=== PATIENT | female | born 1955 | race Caucasian/White ===

== ENCOUNTER 2023-11-05 22:48 | Emergency (ER) | payer OTHER, SELFPAY ==
[2023-11-05 22:50] VITALS: BP 137/96
--- NOTE | 2023-11-06 01:23 | ED.SKININJ ---
HPI-Injury
General
Chief Complaint: Bite
Source: patient
Exam Limitations: none
Time Seen by Provider: 11/06/23 00:21
Nursing documentation reviewed up to this point in time: agreed with
Travel History
Have you had any contact with someone who has COVID-19?: No
Do you have any symptoms of coronavirus? Fever > 100 degrees, chills, cough, shortness of breath, sore throat, loss of taste or smell, muscle aches, or headache?: No
History of Present Illness-Injury
Initial Injury comments:
Patient presents to ED secondary to right hand laceration, after she was bitten accidentally by her dog at home, shortly prior to arrival. Patient states that she was attempting to pet her dog on her buttock, when she accidentally petted her head.
Her dog who is blind, instinctively bit her hand. No other injuries reported. Patient's vaccinations up-to-date. Patient's dog's vaccinations are up-to-date.
Past History
Past History
ED Past Medical History: Fibromyalgia and Other (OA)
ED Past Surgical History: Negative Cardiac
Social History
Tobacco: Non-smoker
Alcohol: None
Drug: None
Personal:
Living: with family
Employment: Employed
Family History
Family History: Hypertension
Review of Systems
Review of Systems
Allergies reviewed?: Yes
All Other Systems: ROS reviewed and negative except as documented in HPI and ROS
Constitutional: Reports no symptoms
Skin: Reports other (Hand laceration, dog bite)
Neurological: Reports no symptoms
Phy Exam
Physical Exam
Physical Exam:
Physical Exam
General: no apparent distress, not acutely ill. afebrile
Head: nc/at. eomi
Neck: supple. no meningeal signs.
Neuro: alert and oriented. no focal neurological deficits
Skin: an approx 4cm, u-shaped superficial laceration noted over dorsal surface of right hand at base of 1st/2nd phalanx, without active bleeding.
Psychiatric: well kept. interactive and cooperative
Extremities: no edema. no calf tenderness.
Course
Orders/Labs/Results
Orders:
Orders
11/06/23 00:52
Amoxicillin 875 mg/Clav 125 mg [Augmentin 875 mg/125 mg] 1 tablet PO NOW STA
Vital Signs
Initial and Last Documented VS:
Initial Vital Signs
Temp Pulse Resp BP Pulse Ox
98 F 82 18 137/96 98
11/05/23 22:50 11/05/23 22:50 11/05/23 22:50 11/05/23 22:50 11/05/23 22:50
Last Documented Vital Signs
Temp Pulse Resp BP Pulse Ox
98 F 82 18 137/96 98
11/05/23 22:50 11/05/23 22:50 11/05/23 22:50 11/05/23 22:50 11/05/23 22:50
Procedures
Laceration Closure
Right Dorsal Hand:
Status of Wound: clean
Size of Wound in cm: 4
Description of Wound Edges: sharp
Preparation: cleaned with SurClens
Anesthesia: 1% Lidocaine with epi
Revision/Debridement: routine- no revision
Type of Closure: single layer closure
Skin Closure Material: 5-0 nylon
Number of sutures: 7
MDM/Problems Addressed
MDM/Problems Addressed:
Wound well approximated. Will start Augmentin x 3 days prophylactically. Advised suture removal in 7-10 days. Tetanus up to date.
*Critical Care Note
Total Time (30-74mins, 75-104mins- exclusive of procedures): Not Applicable
ED Attending Note
-
Portions of this chart may have been created with voice recognition software.� Occasional wrong word or��sound alike� substitutions may have occurred due to the inherent limitations of voice recognition software.
Discharge Plan
Departure
Patient Disposition: Home (Routine Discharge)
Date of Disposition: 11/06/23
Time of Disposition: 01:27
Patient with high blood pressure during this ER visit?: Yes
Discharge Problem:
Dog bite, Hand laceration
Instructions: Animal Bites (DC), Laceration Repair With Stitches (DC)
Prescriptions:
New
amoxicillin-pot clavulanate 875-125 mg tablet
1 tab PO Q12H Qty: 5 0RF
No Action
gabapentin 400 MG capsule
800 mg PO HS
cyanocobalamin (vitamin B-12) [Vitamin B-12] 500 MCG tablet
1,000 mcg PO DAILY
xvwtmuboemvm-Yb-evxr-minerals [Multiple Vitamin, Womens] 1 EACH tablet
2 PO DAILY
duloxetine 60 MG capsule,delayed release(DR/EC)
60 mg PO HS
calcium-vitamin D3-vitamin K 1 EACH tablet
1,000 mg PO DAILY
Patient Comments:
500mg/each
sennosides [senna] 1 TABLET tablet
2 tab PO BID Qty: 0 0RF
magnesium hydroxide 30 ML suspension
30 ml PO DAILYPRN PRN (Reason: constipation) Qty: 0 0RF
aspirin 325 MG tablet,delayed release (DR/EC)
325 mg PO DAILY Qty: 0 0RF
baclofen 10 MG tablet
10 mg PO QPM Qty: 0 0RF
docusate sodium 100 MG capsule
100 mg PO BID Qty: 0 0RF
gabapentin 300 MG capsule
300 mg PO BID@0800,1600 Qty: 0 0RF
oxycodone 5 MG tablet
1 - 2 mg PO Q4HPRN PRN (Reason: pain) Qty: 120 0RF
Rx Instructions:
may take and additional 5 mg every 4 hours if pain not control with 10 mg
acetaminophen [Acetaminophen Extra Strength] 500 MG tablet
500 mg PO Q4HPRN PRN (Reason: pain) Qty: 0 0RF
ibuprofen 600 MG tablet
600 mg PO BIDPRN PRN (Reason: pain) Qty: 0 0RF
Referrals:
Iraida Kerns PA-C [Family Provider] -
Activity Restrictions/Additional Instructions:
As discussed, please follow-up with your primary care physician for reevaluation, including suture removal in 7 to 10 days. Your prescription has been sent electronically to [facility] pharmacy in [place].
Interventions
Interventions:
*Risk Screen - Suicide Last Done: 11/05/23 22:50
*General Assessment Last Done: 11/06/23 01:31
*Neglect/Abuse Screening Last Done: 11/05/23 22:50
ED- Fall Risk Assessment Last Done: 11/06/23 01:31
*ED COVID-19 Vaccine History Last Done: 11/06/23 01:31
*Nursing Disposition Last Done: 11/06/23 01:38
ED-Skin Assessment Last Done: 11/06/23 00:37
Discharge Date and Time
Discharge Date/Time: 11/06/23 01:39
Print Language: PORTUGUESE
[2023-11-06] MEDS: AUGMENTIN 875 MG/125 MG 1 TABLET PO (01:25)
== END 2023-11-06 01:39 | disposition home or self-care (01) ==
LOC: EMR 22:48
PROVIDERS: EMERGENCY PHYSICIAN Emergency Medicine; FAMILY PHYSICIAN Physician Assistant Medical
DX: S61.411A Laceration without foreign body of right hand, initial encounter (principal); W54.0XXA Bitten by dog, initial encounter; R03.0 Elevated blood-pressure reading, without diagnosis of hypertension; M79.7 Fibromyalgia; M19.90 Unspecified osteoarthritis, unspecified site; G43.909 Migraine, unspecified, not intractable, without status migrainosus; I73.00 Raynaud's syndrome without gangrene; F17.200 Nicotine dependence, unspecified, uncomplicated; Z79.82 Long term (current) use of aspirin; Z88.1 Allergy status to other antibiotic agents; Z91.030 Bee allergy status
CPT/HCPCS: 99283; 12002

== ENCOUNTER → 2024-04-12 18:24 | Outpatient (REF) | payer OTHER, SELFPAY | LOC: RAD 18:24 | PROVIDERS: ATTENDING PHYSICIAN Family Medicine | DX: M79.672 Pain in left foot (principal) | CPT/HCPCS: 73630 ==

== ENCOUNTER → 2024-07-03 07:14 | Outpatient (REF) | payer OTHER, SELFPAY | LOC: HWRAD 07:14 | PROVIDERS: ATTENDING PHYSICIAN Student in an Organized Health Care Education/Training Program | DX: R10.13 Epigastric pain (principal) | CPT/HCPCS: 76700 ==

== ENCOUNTER 2024-07-24 06:17 | Day surgery (SDC) | payer OTHER, SELFPAY ==
[2024-07-13 14:07] VITALS: BMI 28.6
[2024-07-24] VITALS (11 sets, daily range): BP systolic 100–125; BP diastolic 48–80; BMI 28.6
[2024-07-24] MEDS: NORMOSOL-R/PLASMALYTE-A 1000 IV (11:40)
[2024-07-24] MEDS: TYLENOL 1000 MG PO (11:40)
--- NOTE | 2024-07-24 12:25 | W.SUR.PREOP ---
Pre-Operative Surgical Note
-
I have examined this patient prior to the performance of the scheduled procedure.
The patient's condition is unchanged from the time of the current History and
Physical and the patient is able to undergo the scheduled procedure.
[2024-07-24] MEDS: DILAUDID 0.5 MG IV ×2 (14:18→14:38)
--- NOTE | 2024-07-24 14:19 | W.IMMPOSTOP ---
Surgical Immed Post Op Note
-
Primary Surgeon: Austin Domínguez MD
Assisting Surgeon: None
Pre-op Diagnosis: Biliary colic
Post-op Diagnosis: Same
Procedure Performed: Laparoscopic cholecystectomy with cholangiogram
Anesthesia Type: General
Specimen / Cultures: Gallbladder and contents
Estimated Blood Loss: 3 cc
Complications: None
Operative Findings: Fairly normal-appearing gallbladder, some adhesions over the infundibulum. Critical view of safety obtained prior to cholangiogram which demonstrated no distal filling defects.
--- NOTE | 2024-07-24 14:20 | OR.RPT ---
Operative Report
Operative Report
Patient Name: Colette Barillas
: 1955
Date of Operation: 07/24/2024
Preoperative Diagnosis: Symptomatic Cholelithiasis
Postoperative Diagnosis: Same
Procedure(s):
Laparoscopic Cholecystectomy with Cholangiogram
Surgeon(s):
Dr. Austin Domínguez
Executive Chef Assistant(s):
RUBÉN Abarca
Anesthesia: General
Estimated Blood Loss: 3 cc
Urine Output: None
Drains/Lines/Implants: None
Specimens:
1. Gallbladder and contents
HPI/Surgical Indications:
This is a 68 year old female who presents with abdominal pain. Exam, labs and imaging are consistent with symptomatic cholelithiasis. Risks/Benefits/Alternatives were discussed at length, and the patient agreed to proceed with surgery.
Findings:
The patient was noted to have some evidence of gallbladder inflammation noted by omental adhesions. A Critical View of Safety was obtained. Cholangiogram showed no filling defects in the biliary system with the Left, Right Anterior, Right posterior
hepatic ducts, CHD, cystic duct and CBD all identified. There was brisk flow of dye into the duodenum.
Procedure Description:
The patient was brought to the Operating Room and placed in the supine position. IV antibiotics were infused and sequential compression devices were confirmed to be on. Following uneventful induction of general endotracheal anesthesia, an
orogastric tube was placed. The abdomen was prepped and draped in the usual sterile fashion. The abdomen was entered using an open Ne technique with a infraumbilical 12 mm trochar. Pneumoperitoneum to 15 mmHg pressure was obtained without
difficulty and we confirmed that no injury had occurred during our entry. The patient was positioned in reverse trendelenberg and rotated with the right side up slightly. Three (3) 5mm trocars were then placed along the right subcostal margin. A
locking grasping forceps was placed on the fundus of the gallbladder where it was then retracted cephalad and to the right. Using appropriate grasping instruments, the peritoneum overlying the triangle of Calot was incised. The cystic
duct/gallbladder junction was identified, dissected circumferentially. The cystic artery was identified medially and was dissected circumferentially. A critical view was obtained. A clip was then placed on the cystic duct/gallbladder junction and
an intraoperative cholangiogram performed using fluoroscopy, which showed good flow of dye into the duodenum. There were no intra- or extrahepatic bile duct filling defects. The biliary anatomy appeared normal. Following completion of the
cholangiogram, the catheter was removed. Two clips were then placed proximally on the cystic duct and the duct divided. The stump was reinforced with a 0 PDS Endoloop. Two clips were placed proximally and one distally on the cystic artery, and
the artery was divided. Remaining soft tissue attachments of the gallbladder to the liver bed were then divided using electrocautery. There was no spillage of bile or stones. There was a posterior artery with small branches to the gallbladder
which were divided but the main trunk inserted high into the liver and was preserved. The gallbladder bed was inspected and excellent hemostasis was obtained. The gallbladder was extracted through the 12 mm trocar site using an endocatch bag. The
abdomen was again irrigated and excellent hemostasis was assured. All remaining trocars were then removed and the pneumoperitoneum was evacuated. The 12 mm trocar site was closed using a figure of 8 of 0 PDS. All trocar sites were closed at the
skin level using 4-0 Monocryl followed by Dermabond. Overall, the patient tolerated the procedure well and was taken to the Recovery Room postoperatively in stable condition.
I was the attending physician and performed the procedure with assistance from the INBOUND CALL CENTER AGENT above. I was present for all portions of the case, excluding skin closure.
Austin Domínguez MD
[2024-07-24] MEDS: DILAUDID 0.25 MG IV (15:16)
== END 2024-07-24 16:44 | disposition home or self-care (01) ==
LOC: SDS 06:17
PROVIDERS: ATTENDING PHYSICIAN Surgery; FAMILY PHYSICIAN Physician Assistant Medical
DX: K80.10 Calculus of gallbladder with chronic cholecystitis without obstruction (principal)
CPT/HCPCS: 47563; 88304; 36415; 74300; 76000; 93005

== ENCOUNTER 2024-07-29 08:21 | Emergency (ER) | payer OTHER, SELFPAY ==
[2024-07-29 08:22] VITALS: BP 149/89
[2024-07-29 09:58] VITALS: BP 128/79; BMI 29.7
--- NOTE | 2024-07-29 10:05 | ED.GENMED ---
History of Present Illness
General
Chief Complaint: Abdominal Symptoms
Source: patient
Exam Limitations: none
Time Seen by Provider: 07/29/24 09:08
Nursing documentation reviewed up to this point in time: agreed with
History of Present Illness
History of Present Illness:
Patient is a 68-year-old female 5 days postop cholecystectomy presenting to the emergency department with worsening abdominal pain and dysuria. Patient reports gradually worsening pain somewhat diffusely throughout her abdomen although more
profound in her right upper quadrant and right flank region. Patient also notes dysuria over the past few days and is concerned that she is UTI. Patient is passing flatus although has not had a bowel movement. Patient denies any fever or chills.
No chest pain or shortness of breath. No lower leg swelling.
Patient has been taking Tylenol and intermittently tramadol for pain however has not had any pain medication today.
Past History
Past History
ED Past Medical History: Fibromyalgia and Other (OA)
ED Past Surgical History: Negative Cardiac
Social History
Tobacco: Non-smoker
Alcohol: None
Drug: None
Personal:
Living: with family
Employment: Employed
Family History
Family History: Hypertension
Review of Systems
Review of Systems
Allergies reviewed?: Yes
All Other Systems: ROS reviewed and negative except as documented in HPI and ROS
Phy Exam
Physical Exam
Physical Exam:
Vitals: Patient's vital signs are stable. Afebrile
General: Patient is well appearing, no acute distress. Nontoxic appearing
Skin: Laparoscopic abdominal incisions C/D/I without surrounding erythema or red streaking. Warm and dry, no rashes or lesions.
Head: Normocephalic, atraumatic
Eyes: Sclera nonicteric. EOMs intact. No nystagmus.
Throat: Protecting airway
Neck: Normal ROM, no cervical spine tenderness, no meningismus
Cardiac: Regular rate and rhythm, no murmurs.
Pulm: Normal respiratory effort, no wheezes, rales, rhonchi heard on exam.
Abdomen: Well-healing incisions as above. Moderate diffuse abdominal tenderness. Mild reproducible right flank pain without ecchymoses.
Extremities: No evidence of cyanosis or edema. Palpable DP pulses bilaterally.
Neuro: AAOx3. Grossly intact.
Psychiatric: Normal affect.
Course
Orders/Labs/Results
Orders:
Orders
07/29/24 10:01
CT Abd/pelvis W Iv Cont Urgent
Comment: 5 days post-op CCY
Reason For Exam: Diffuse abdominal pain, R flank pain
07/29/24 10:04
0.9% Sodium Chloride 1000 ml [Nss] 1,000 ml IV BOLUS
Acetaminophen [Tylenol] 1,000 mg PO NOW STA
07/29/24 10:10
Complete Blood Count/With Diff Urgent
Comprehensive Metabolic Panel Urgent
Lactic Acid Q4H
Comment: CANCEL 2nd LACTIC ACID IF 1st LACTIC ACID IS LESS THAN 2
Urinalysis Reflex To Culture Urgent
Date Specimen was Collected: 07/29/24
Time Specimen was Collected: 10:07
Urine Microscopic Reflex Cult Urgent
Urine Culture Urgent
RC Source: U
Specimen Description:
Date Specimen was Collected: 07/29/24
Time Specimen was Collected: 10:07
Abnormal Lab Results
07/29/24
10:10
Immature Gran % 0.6 H %
(0-0.5)
Leukocyte Esterase Rfl 1+ A
(Negative)
07/29/24 10:10
07/29/24 10:10
Vital Signs
Initial and Last Documented VS:
Initial Vital Signs
Temp Pulse Resp BP Pulse Ox
98.6 F 88 16 149/89 100
07/29/24 08:22 07/29/24 08:22 07/29/24 08:22 07/29/24 08:22 07/29/24 08:22
Last Documented Vital Signs
Temp Pulse Resp BP Pulse Ox
98.6 F 79 16 141/83 97
07/29/24 08:22 07/29/24 11:54 07/29/24 12:00 07/29/24 11:54 07/29/24 11:54
MDM/Problems Addressed
Differential Diagnosis Includes:
Not limited to: Constipation, UTI, pyelonephritis, intra-abdominal abscess, etc.
MDM/Problems Addressed:
68-year-old female 5 days postop from cholecystectomy presenting with worsening abdominal discomfort and constipation. Also notes dysuria and concern for UTI. No associated fevers, chest pain, shortness of breath. Patient afebrile upon arrival
with stable vital signs. Exam as above. Patient has well-healing laparoscopic surgical scars on abdomen without any surrounding erythema, red streaking, or drainage. Abdomen is soft with moderate tenderness throughout. Given concern for
intra-abdominal infection postoperatively�basic labs, lactic and CT abdomen/pelvis were obtained. UA was sent off as well. Will give Tylenol and IV fluids.
Update: Labs reviewed. No leukocytosis. Chemistry shows no abnormalities. Lactic normal. Urine shows no evidence of infection. CT abdomen/pelvis shows no evidence of acute intra-abdominal process/postoperative abscess. There is constipation
noted which I suspect to be contributing to patient's symptoms, possibly opioid induced. No evidence of cellulitis on exam today. Do not feel antibiotics indicated at this time given patient afebrile with no leukocytosis, and well-healing surgical
scars. At this point�feel patient stable for discharge home with general surgery follow-up outpatient. Will advise MiraLAX, magnesium citrate as needed for constipation. Advised to avoid further opioids. Very strict return precautions discussed
with patient including signs of infection. She will contact general surgeon tomorrow. Patient comfortable this plan. Case was discussed with attending physician.
Chronic conditions affecting care:
Recent cholecystectomy
Acute Exacerbation and/or Progression of Chronic Illness:
N/A
*Radiology
Radiology exam reviewed: radiology read reviewed
*Pulse Oximetry
Patient hypoxic: no
*EKG
Interpreted by ED Provider?: NA
*Room Inspector Interpretation
Rate: Room Inspector- N/A
*Critical Care Note
Total Time (30-74mins, 75-104mins- exclusive of procedures): Not Applicable
Data Reviewed
Review of Other/Old Records Reveals: Operative Reports (Operative report 07/24/2024-uncomplicated laparoscopic cholecystectomy w/ cholangiogram - Dr. Domínguez)
Patient Management
Escalation/DeEscalation of care consider admission/obs:
Admit not indicated
ED Attending Note
-
Portions of this chart may have been created with voice recognition software.� Occasional wrong word or��sound alike� substitutions may have occurred due to the inherent limitations of voice recognition software.
Discharge Plan
Departure
Patient Disposition: Home (Routine Discharge)
Date of Disposition: 07/29/24
Time of Disposition: 12:43
Patient with high blood pressure during this ER visit?: Yes
Condition: Good
Covid-19: Not Applicable
Discharge Problem:
Abdominal pain, Constipation
Instructions: Constipation, Adult (DC), Abdominal Pain, BLOOD PRESSURE
Prescriptions:
No Action
ibuprofen 200 mg Tablet
400 mg PO Q6H PRN (Reason: Pain)
acetaminophen [acetaminophen] 325 mg tablet
650 mg PO Q6HPRN PRN (Reason: mild pain) Qty: 14 0RF
tramadol 50 mg tablet
25 mg PO Q6HPRN PRN (Reason: severe pain/breakthrough pain) Qty: 8 0RF
Referrals:
Iraida Kerns PA-C [Family Provider] -
Austin Domínguez MD [Active] - Call in 1-3 days for appt
Stand Alone Forms: Return to Work
Activity Restrictions/Additional Instructions:
Return to the emergency department with any fevers, chills, worsening abdominal pain, nausea/vomiting, signs of infection around incision sites including redness, drainage, red streaking, etc.
-As discussed�I would recommend avoiding tramadol or other opioids as it is likely worsening constipation. It is important to stay very well-hydrated. You should try MiraLAX daily. If symptoms persist/you can take magnesium citrate at home. I
recommend drinking half the bottle and if no bowel movement in 12 hours�drink second half.
-It is important to keep a very close eye on your incision sites. Follow-up with general surgery/return to the ER with any signs of infection.
-Call general surgery tomorrow for further evaluation/management and possible sooner appointment.
Monitor symptoms closely and return to the emergency department with any acute worsening/new symptoms or any other concerns
Interventions
Interventions:
*Risk Screen - Suicide Last Done: 07/29/24 09:59
*General Assessment Last Done: 07/29/24 09:59
*Neglect/Abuse Screening Last Done: 07/29/24 09:59
*ED- Fall Risk Assessment Last Done: 07/29/24 09:58
*ED COVID-19 Vaccine History Last Done: 07/29/24 09:58
*Nursing Disposition Last Done: 07/29/24 12:50
KF-Fswrsd-Dfqqvmomul Assessment Last Done: 07/29/24 10:01
Discharge Date and Time
Discharge Date/Time: 07/29/24 12:58
Print Language: SWISS
[2024-07-29] MEDS: TYLENOL 1000 MG PO (10:13)
[2024-07-29] MEDS: NSS 1000 IV (10:14)
[2024-07-29 10:21] LABS: % Basophils 0.8 % (0-2); % Eosinophils 1.8 % (0-6); % Immature Granulocytes 0.6 % (0-0.5); % Lymphocytes 31.6 % (20.5-51.1); % Monocytes 8.6 % (1.7-9.3); % Neutrophils 56.6 % (42.2-75.2); Absolute Eosinophils 0.1 10^3/uL (0-0.7); Absolute Lymphocytes 1.6 10^3/uL (1.2-3.4); Absolute Monocytes 0.4 10^3/uL (0.1-0.6); Absolute Neutrophils 2.8 10^3/uL (1.4-6.5); Hematocrit 40.8 % (37.0-47.0); Hemoglobin 13.8 g/dL (12.0-16.0); Mean Corp Hgb Conc. 33.8 g/dL (33.0-37.0); Mean Corpuscular Hgb 30.8 pg (27.0-31.0); Mean Corpuscular Volume 91.1 fL (81.0-99.0); Nucleated Red Blood Cells % 0 %; Platelet Count 192 10^3/uL (130-400); Red Blood Cell Count 4.48 10^6/uL (4.20-5.40); Urine Albumin Negative (Neg - Trace); Urine Bilirubin Negative (Negative); Urine Character Clear (Clear); Urine Color Yellow; Urine Glucose Negative (Negative); Urine Ketone Negative (Negative); Urine Leukocyte 1+ (Negative); Urine Nitrite Negative (Negative); Urine Occult Blood Negative (Negative); Urine Urobilinogen Negative (Neg - 1+); Urine pH 6.5 (5.0-9.0)
[2024-07-29 10:36] LABS: ALT (SGPT) 21 U/L (0-35); AST (SGOT) 31 U/L (14-36); Albumin 4.4 g/dl (3.5-5.0); Alkaline Phosphatase 77 U/L (38-126); Blood Urea Nitrogen 17 mg/dl (7-17); Calcium 9.5 mg/dl (8.4-10.2); Carbon Dioxide 27 mmol/L (22-30); Chloride 102 mmol/L (98-107); Estimated Creatinine Clearance 60 ml/min; Glucose 94 mg/dl (70-99); Potassium 4.5 mmol/L (3.5-5.1); Sodium 139 mmol/L (135-145); Total Bilirubin 0.8 mg/dl (0.2-1.3); Total Protein 6.9 g/dl (6.3-8.2); eGFR > 60.00
[2024-07-29 10:55] LABS: Urine Squamous Cell 16-20 /LPF (Few)
[2024-07-29 10:56] LABS: Urine Red Blood Cell 0-2 /HPF (0-2); Urine White Cell 0-2 /HPF (0-5)
[2024-07-29 11:54] VITALS: BP 141/83
== END 2024-07-29 12:58 | disposition home or self-care (01) ==
LOC: EMR 08:21
PROVIDERS: Physician Assistant; EMERGENCY PHYSICIAN Student in an Organized Health Care Education/Training Program; FAMILY PHYSICIAN Physician Assistant Medical; OTHER PHYSICIAN Surgery
DX: R10.11 Right upper quadrant pain (principal); R30.0 Dysuria; K59.00 Constipation, unspecified; R03.0 Elevated blood-pressure reading, without diagnosis of hypertension; M79.7 Fibromyalgia; M19.90 Unspecified osteoarthritis, unspecified site; I73.00 Raynaud's syndrome without gangrene; F41.9 Anxiety disorder, unspecified; Z87.891 Personal history of nicotine dependence; Z90.49 Acquired absence of other specified parts of digestive tract; Z98.890 Other specified postprocedural states; Z88.1 Allergy status to other antibiotic agents; Z91.030 Bee allergy status
CPT/HCPCS: 99284; 96360; 74177; 80053; 81003; 81015; 83605; 85025; 87086; Q9967

== ENCOUNTER → 2024-12-05 14:34 | Outpatient (REF) | payer OTHER, SELFPAY | LOC: WDC 14:34 | PROVIDERS: ATTENDING PHYSICIAN Physician Assistant Medical | DX: Z12.31 Encounter for screening mammogram for malignant neoplasm of breast (principal); Z78.0 Asymptomatic menopausal state | CPT/HCPCS: 77063; 77067; 77080 ==

== ENCOUNTER → 2024-12-20 12:20 | Outpatient (REF) | payer OTHER, SELFPAY | LOC: RAD 12:20 | PROVIDERS: ATTENDING PHYSICIAN Internal Medicine; FAMILY PHYSICIAN Physician Assistant Medical | DX: R93.3 Abnormal findings on diagnostic imaging of other parts of digestive tract (principal); R19.8 Other specified symptoms and signs involving the digestive system and abdomen | CPT/HCPCS: 74019 ==

== ENCOUNTER → 2025-04-08 12:25 | Outpatient (REF) | payer OTHER, SELFPAY | LOC: REG 12:25 | PROVIDERS: ATTENDING PHYSICIAN Internal Medicine; FAMILY PHYSICIAN Physician Assistant Medical | DX: R19.8 Other specified symptoms and signs involving the digestive system and abdomen (principal); R19.7 Diarrhea, unspecified | CPT/HCPCS: 74019 ==